=== PATIENT | female | born 1985 | race Caucasian/White ===

== ENCOUNTER 2020-03-17 19:49 | Observation (INO) | payer SELFPAY ==
[~2020-03-17 19:49] MED LIST: Dexamethasone 20 MG/5 ML VIAL ONE; Lidocaine 1% PF 5 ML VIAL ONE; Ondansetron PF 4 MG/2 ML Vial ONE; PROPOFOL 200 MG/20 ML VIAL ONE; Rocuronium Bromide 10 MG/ML (10ML VIAL) ONE; Succinylcholine Chloride 20 MG/ML 10 ml SYRINGE FS ONE
[2020-03-17] MEDS ORDERED: Fentanyl 100 MCG/2 ML VIAL ONE (19:57)
[2020-03-17] MEDS ORDERED: Neomycin-Polymyxin 1 ML AMP ONE ×2 (20:26→20:29)
[2020-03-17] MEDS ORDERED: Dextrose 5% in Water 1,000 ML IV PRN (21:10)
[2020-03-17] MEDS ORDERED: Morphine 2 MG/ML VIAL SLOW IVP PRN (21:10)
[2020-03-17] MEDS ORDERED: Dextrose 50% Abboject 50 ML SYRINGE SLOW IVP PRN (21:10)
[2020-03-17] MEDS ORDERED: TETANUS AND DIPHTHERIA TOX/PF 0.5 ML DISP.SYRIN IM ONE (21:10)
[2020-03-17] MEDS ORDERED: traMADol HCl 50 MG TAB PO PRN (21:19)
--- NOTE | 2020-03-17 21:50 | RAD ---
2 intraoperative images of the left great toe:: 03/17/2020 COMPARISON: 03/17/2020 HISTORY: Status post reduction Findings/impression: Previously noted dislocation of the first metatarsal-phalangeal joint has been r educed.
[2020-03-17] MEDS ORDERED: Meperidine HCl/PF 25 MG/ML VIAL ONE (21:53)
--- NOTE | 2020-03-17 21:55 | HP ---
CONSULTS: Orthopedic Surgery, Dr. Garcia. REQUESTING PHYSICIAN: Dr. Lugo at [facility]. CHIEF COMPLAINT: Syncope, left foot pain. HISTORY OF PRESENT ILLNESS: This is a 35-year-old female, who had a syncopal episode inside the gas station. The patient states that she just blacked out and had no warning. The patient sustained an open left metatarsal dislocation, but unknown how. The patient did have a positive loss of consciousness and has a very superficial deep abrasion to the left eyebrow. The patient denies any recent illnesses including fever, chills, cough. The patient denies any urinary symptoms. The patient reports that this happened sometime around 2. The patient did have 2 margaritas earlier in the day. The patient denies being a daily drinker. The patient denies any new medication. REVIEW OF SYSTEMS: A 10-point review of systems is negative unless otherwise indicated in the above HPI. ALLERGIES: NO KNOWN DRUG ALLERGIES. MEDICATIONS: Adderall 30 mg, but has not taken it in over a month. MEDICAL HISTORY: ADHD. SURGICAL HISTORY: Bladder surgery as a child. SOCIAL HISTORY: Drinks occasionally socially, reports past use of methamphetamines, last used one month ago. Currently smokes cigarettes half pack a day. OBJECTIVE: VITAL SIGNS: Blood pressure 151/98, pulse 96, respirations 15, SpO2 of 98% on room air, temperature 98.3. GENERAL: Middle-age female, awake, alert, and appears anxious. HEENT: Normocephalic, very superficial abrasion, left eyebrow, no active bleeding, mucous membranes moist, midface stable. NECK: No cervical spine tenderness, normal range of motion of neck. No JVD, trachea midline. RESPIRATORY: Equal chest rise and fall, bilateral breath sounds clear, no wheezing, rales, or rhonchi. CARDIOVASCULAR: Regular rate, regular rhythm, no murmurs, no pedal edema. ABDOMEN: Soft, nontender, nondistended. EXTREMITIES: Moves all extremities. Neurovascularly intact x4. Left foot is wrapped in Kerlix wet-to-dry dressing. Unable to visualize the wound. It was reported an obvious open dislocation of the left 1st MTP with exposed distal end of the metatarsal. No other injuries. NEUROLOGIC: No focal deficits. GCS 15. LABORATORY DATA: WBC 7.6, RBC 4.61, hemoglobin 13.1, hematocrit 44.2, platelets 242. Sodium 138, potassium 3.5, chloride 104, carbon dioxide 23, BUN 7, creatinine 0.82, estimated GFR 78, glucose 120, AST 16, ALT 7, alkaline phos 66. Troponin I is less than 0.1. test negative. Urinalysis: No bacteria, negative leukocyte esterase, moderate blood. Negative nitrites. Urine drug screen: Urine opioids detected. DIAGNOSTIC DATA: 12-lead EKG sinus rhythm, heart rate 76, normal T-waves and ST segments. 1. C-spine CT, no acute osseous abnormality. 2. Head CT, no acute intracranial process. 3. Left foot x-ray: Impression: Dislocation of the 1st metatarsal phalangeal joint. Fracture at the base of the 3rd metatarsal and 2nd metatarsal. ASSESSMENT: 1. Status post syncopal fall. 2. Superficial abrasion of left forehead. 3. Concussion. 4. Open dislocation, 1st metatarsal phalangeal joint. Fracture at the base of the 3rd metatarsal. 5. Acute traumatic pain secondary to above injury. PLAN: Supportive care and pain control. Orthopedic Surgery, Dr. Garcia, plans to take the patient to the OR now for repair. IV maintenance fluids. A regular diet postop. The plan was discussed with the attending who agrees. Job ID: [id number]
[2020-03-17] MEDS ORDERED: Potassium Phosphate 30 MMOL in Sodium Chloride 0.9% 500 ML IVPB SCH (22:00)
[2020-03-17] MEDS ORDERED: Promethazine HCl 25 MG/ML VIAL SLOW IVP PRN (22:00)
[2020-03-17] MEDS ORDERED: Meperidine HCl/PF 25 MG/ML VIAL SLOW IVP PRN (22:00)
[2020-03-17] MEDS ORDERED: Ondansetron HCl/PF 4 MG/2 ML Vial IVP PRN (22:00)
[2020-03-17] MEDS ORDERED: Promethazine HCl 25 MG/ML VIAL IM PRN (22:00)
[2020-03-17] MEDS: Ketorolac Tromethamine 30 MG/ML VIAL IVP SCH (23:27)
[2020-03-17] MEDS: traMADol HCl 50 MG TAB PO SCH (23:27)
[2020-03-17] MEDS: Acetaminophen 500 MG TAB PO SCH (23:28)
[2020-03-18 00:05] VITALS: BMI 22.0
[2020-03-18] MEDS: Sodium Chloride 0.9% 1,000 ML IV SCH ×3 (00:39→16:57)
[2020-03-18] MEDS: traMADol HCl 50 MG TAB PO SCH ×4 (05:13→23:08)
[2020-03-18] MEDS: Acetaminophen 500 MG TAB PO SCH ×4 (05:14→23:08)
[2020-03-18] MEDS: Ketorolac Tromethamine 30 MG/ML VIAL IVP SCH (05:15)
[2020-03-18] MEDS: CEFAZOLIN 2 GM in Premix Bag 1 BAG IVPB SCH ×3 (05:16→23:07)
[2020-03-18 05:35] LABS: Hemoglobin 13.4 g/dL (12.0-16.0); Mean Corpuscular HGB CONC 32.1 g/dL (32.0-36.0); Mean Corpuscular Hemoglobin 30.9 pg (27.0-31.0); Mean Corpuscular Volume 96.3 fL (78.0-98.0); Mean Platelet Volume 9.9 fL (7.4-10.4); Platelet Count 254 thou/uL (130-400); RBC Distribution Width 10.9 % (11.5-14.5); Red Blood Cell (RBC) Count 4.34 mill/uL (4.20-5.40); White Blood Cell (WBC) Count 10.2 thou/uL (4.8-10.8)
[2020-03-18 05:46] LABS: Anion Gap 13 mmol/L (10-20); BUN (Urea Nitrogen) 7 mg/dL (7.0-18.7); Calc. Creatinine Clearance 103 mL/min (70-130); Calcium 8.1 mg/dL (7.8-10.44); Carbon Dioxide 22 mmol/L (22-29); Chloride 108 mmol/L (98-107); Estimated GFR-MDRD 83; Glucose 134 mg/dL (70-105); Magnesium 1.7 mg/dL (1.6-2.6); Phosphorus 4.2 mg/dL (2.3-4.7); Potassium 4.6 mmol/L (3.5-5.1); Sodium 138 mmol/L (136-145)
[2020-03-18] MEDS: Polyethylene Glycol 3350 17 GM Packet PO SCH (08:14)
[2020-03-18] MEDS: Ibuprofen 800 MG TAB PO SCH ×2 (10:04→16:56)
[2020-03-18] MEDS ORDERED: Magnesium 2 GM/50 ML 2 GM in Premix Bag 1 BAG IVPB SCH (14:30)
--- NOTE | 2020-03-18 18:27 | PRG ---
DATE OF SERVICE: 03/18/2020 SUBJECTIVE: The patient was seen this afternoon after rounds. She was lying in bed with no signs of acute distress. She reports she is tolerating her diet. Pain is well controlled. She is getting around safely with crutches, going to the bathroom independently. She is pending echo read for syncopal episode, not otherwise diagnosed on previous workup. OBJECTIVE: VITAL SIGNS: Temperature 98.7, pulse 70, respirations 16, oxygen saturation 92% on room air, blood pressure 109/72. GENERAL: Well-appearing young female lying in bed with no signs of acute distress. PULMONARY: Equal chest rise and fall. Clear breath sounds bilaterally. No signs of acute respiratory distress. CARDIAC: Regular rate and rhythm. GI: Abdomen is soft, nontender, nondistended. EXTREMITIES: 2+ pulses in all extremities. Gross motor and sensation are intact left lower extremity that is intact and working appropriately. NEUROLOGIC: GCS is 15. LABORATORY FINDINGS: White count 10.2, hemoglobin 13.4, hematocrit 41.8, platelets 254. Sodium 138, potassium 4.6, chloride 108, bicarb 22, BUN 7, creatinine 0.78, glucose 134, phosphorus 7.2, magnesium 1.7. DIAGNOSTIC FINDINGS: There are no new diagnostic findings to report. ASSESSMENT: 1. Status post syncopal fall. 2. Left 1st MTP dislocation with fracture of the 2nd and 3rd metatarsals. 3. Concussion. 4. Syncope. 5. Right thyroid nodule. PLAN: Continue current regular diet. Continue physical and occupational therapy. Continue current pain regimen. Discontinue IV fluids. Echo has been completed. We are pending read. If the read is unconcerning, we will discharge the patient home. We will replace the patient's magnesium today. Job ID: [id number]
[2020-03-19] MEDS: Ibuprofen 800 MG TAB PO SCH ×3 (02:44→17:26)
[2020-03-19] MEDS: CEFAZOLIN 2 GM in Premix Bag 1 BAG IVPB SCH ×2 (05:16→16:32)
[2020-03-19] MEDS: traMADol HCl 50 MG TAB PO SCH ×3 (05:17→17:27)
[2020-03-19] MEDS: Acetaminophen 500 MG TAB PO SCH ×3 (05:17→17:26)
[2020-03-19] MEDS: Polyethylene Glycol 3350 17 GM Packet PO SCH (09:46)
--- NOTE | 2020-03-19 10:02 | OP ---
DATE OF PROCEDURE: 03/17/2020 PREOPERATIVE DIAGNOSES: 1. Open dislocation of left 1st metatarsophalangeal joint. 2. Closed fracture of base of 3rd metatarsal. POSTOPERATIVE DIAGNOSES: 1. Open dislocation of left 1st metatarsophalangeal joint. 2. Closed fracture of base of 3rd metatarsal. SURGICAL PROCEDURES: 1. Open reduction and suture stabilization of left 1st metatarsophalangeal joint dislocation. 2. Irrigation and debridement of open left 1st metatarsophalangeal joint dislocation. 3. Closed treatment of left 3rd metatarsal base fracture. ANESTHESIA: General. VICE PRESIDENT INTEGRATED: None. TOURNIQUET: None. ESTIMATED BLOOD LOSS: Less than 5 mL. IMPLANTS: None. DRAINS: None. SPECIMEN: None. OUTCOME: Satisfactory. INDICATIONS FOR PROCEDURE: The patient is a 35-year-old lady status post trip sustaining an open dislocation of the left 1st metatarsophalangeal joint and a fracture at the base of the 3rd. The patient was initially seen at the [facility] where x-rays confirmed these findings. The patient was given antibiotics at the emergency room, placed in a sterile dressing, and then transferred to [facility] for orthopedic evaluation. Upon evaluation, the patient was found to have a lateral dislocation of the left 1st metatarsophalangeal joint as well as a nondisplaced fracture at the base of the 3rd. Her foot compartments were soft. She pain with passive stretch. It should be noted that in this medial wound, the metatarsal head could be clearly visualized. There were no foreign debris. The patient now taken urgently to the operating room for irrigation, debridement, and stabilization of this toe. DESCRIPTION OF PROCEDURE: The patient was brought to the operating room and a time-out performed followed by induction of general anesthesia. She was positioned supine on the OR table and then a sterile prep and drape was performed on the left lower extremity. Next, the wound was inspected. There was found to be perhaps just some very minor debris consistent with very small bits of gravel. These were removed from the wound with forceps. Bulb syringe was then used to irrigate 2 L of normal saline through the wound. No further foreign material was encountered. Next, the dislocation was reduced without difficulty. There was found to have relative stability with just the simple reduction maneuver. As such, it was felt that with closure of the capsule, this would be adequate stabilization of this fracture. As such, the edges of the capsule were identified, and using 0 Vicryl, the capsule was closed, providing quite good stability of the metatarsophalangeal joint. This was then followed by 2-0 Vicryl subcutaneously and then 3-0 nylon for the skin. At the completion of the suture stabilization of the joint, a Xeroform, gauze, and Kashif wrap dressing was applied to the foot and then the foot was placed in a postoperative shoe providing stability to the third metatarsal base as well as the 1st metatarsophalangeal joint dislocation. The patient was then transferred to recovery room in stable condition. There were no complications. She tolerated the procedure well. Job ID: [id number]
--- NOTE | 2020-03-19 16:01 | PRG ---
DATE OF SERVICE: 03/19/2020 SUBJECTIVE: Ms. Ceron is postop day #1, status post ORIF of the left first metatarsophalangeal dislocation with fracture and fracture of the second and third metatarsals. She is feeling better. No further syncope. No tachycardia. Echocardiogram was reviewed. She does have a PFO. Cardiology is consulted. Discussed with Cardiology, and they are planning for a transesophageal echocardiogram with a bubble study to evaluate with a degree of shunt. The patient's pain is controlled, she is getting about. She is tolerating a diet. OBJECTIVE: VITAL SIGNS: Today, temperature is 98.2, blood pressure is 108/70, heart rate is 65, breathing 17 times per minute, 96% on room air. GENERAL: A 35-year-old female sitting up in no acute distress. HEENT: Normocephalic and atraumatic. Trachea is midline. RESPIRATORY: Equal rise and fall. Bilateral breath sounds. Clear to auscultation upper and lower lobes bilaterally. CARDIOVASCULAR: Trace murmur appreciated. Regular rhythm and regular rate. No edema. ABDOMEN: Soft, nontender. Pelvis is stable. MUSCULOSKELETAL: She has dressing applied to the left foot and digit. No acute pain. NEUROLOGIC: Alert and oriented to person, place, time, and event. GCS is 15. PSYCHIATRIC: Normal mood and affect. LABORATORY DATA: There is no laboratory data to review today. ASSESSMENT AND PLAN: 1. Syncope and fall. 2. Left first metatarsophalangeal dislocation with fracture of the second and third metatarsals, status post open reduction and internal fixation. 3. Concussion. 4. Right thyroid nodule. PLAN: 1. We will continue PT, OT. 2. Continue pain control. 3. Dr. Coburn with Cardiology is consulted and appreciate recommendations. 4. Plan for transesophageal echocardiogram and bubble study likely discharge after this. 5. The patient understands the plan. Discussed with Nursing and Cardiology. Job ID: [id number]
[2020-03-19] MEDS: Cephalexin 250 MG CAP PO SCH (21:11)
--- NOTE | 2020-03-19 23:12 | CON ---
DATE OF CONSULTATION: HISTORY OF PRESENT ILLNESS: Mayte Ceron is a 35-year-old white female with a longstanding history of vasovagal syncope. She especially has syncopal episodes when she sees needles or has her blood drawn. She then had a syncopal episode, but without any particular inciting event while walking to the bathroom. She suffered a fracture of the left foot, underwent ORIF of this. Echocardiogram revealed ejection fraction of 60% to 65% with a small foramen ovale with [id number] shunt, mild mitral regurgitation, and mild tricuspid regurgitation. She denies any history of transient ischemic attacks or strokes in the past. She has no paresthesias or extremity weakness. PAST MEDICAL HISTORY: ADHD and episodes of vasovagal syncope as noted above. OPERATIONS: Bladder surgery as a child and left foot ORIF. MEDICATIONS: Adderall 30 mg, but has not taken this for a month. ALLERGIES: NONE. SOCIAL HISTORY: She smokes 1/2 pack per day. History of methamphetamine abuse, although the last time was one month ago. REVIEW OF SYSTEMS: Unremarkable except as noted above. PHYSICAL EXAMINATION: VITAL SIGNS: Blood pressure 127/80 and pulse 64. HEENT: PERRL. NECK: Supple. CHEST: Clear. CARDIAC: S1 and S2 normal without any S3 or S4. There is a 1/6 systolic murmur along the left upper sternal border. ABDOMEN: Normal bowel sounds without tenderness or organomegaly. EXTREMITIES: Revealed no clubbing, cyanosis, or edema. NEUROLOGIC: Grossly intact. SKIN: Warm and dry. LABORATORY DATA: I do not see an EKG on the chart. CBC is unremarkable. Sodium 138, potassium 4.6, chloride 108, carbon dioxide 22, BUN 7, creatinine 0.78. Urine drug screen was positive for opiates. IMPRESSION: 1. Small patent foramen ovale seen on echo. 2. Probable vasovagal syncope with multiple episodes in the past, although there was not any particular inciting event. 3. Attention deficit hyperactivity disorder. 4. Smoker. PLAN: EKG will be obtained. It is recommended she undergo transesophageal echo and possible bubble study with this. This is after an elective procedure; however, I am quite concerned that if she is discharged that she may not have the funds to come in for an elective evaluation. Therefore, we recommend that she stays until transesophageal echo is performed. Job ID: [id number] [facility]
[2020-03-20] MEDS: traMADol HCl 50 MG TAB PO SCH ×4 (00:27→19:06)
[2020-03-20] MEDS: Ibuprofen 800 MG TAB PO SCH ×3 (00:27→19:06)
[2020-03-20] MEDS: Acetaminophen 500 MG TAB PO SCH ×4 (00:27→19:05)
[2020-03-20] MEDS: Polyethylene Glycol 3350 17 GM Packet PO SCH (08:48)
[2020-03-20] MEDS: Cephalexin 250 MG CAP PO SCH ×3 (08:48→20:17)
--- NOTE | 2020-03-20 15:34 | PRG ---
DATE OF SERVICE: 03/20/2020 SUBJECTIVE: The patient was seen on morning rounds today. She was seen yesterday by Cardiology, recommending a SOCORRO with bubble study that will be completed tomorrow. Therefore, she will be inpatient until then. She had no changes overnight, feels well, hemodynamically stable. OBJECTIVE: VITAL SIGNS: Temperature is 98.3, blood pressure 121/78, heart rate is 62, breathing 18 times per minute, and 96% on room air. GENERAL: A 35-year-old female, sitting up, in no acute distress. HEENT: Normocephalic. Trachea is midline. RESPIRATORY: Equal rise and fall. No respiratory distress. CARDIOVASCULAR: Regular rate. MUSCULOSKELETAL: Moves all of her extremities well. NEUROLOGIC: Alert and oriented to person, place, time, and event. PSYCH: Normal mood and affect. SKIN: Warm and dry. LABORATORY DATA: There are no laboratory data to review. No diagnostics to review. ASSESSMENT AND PLAN: 1. Syncope. 2. Patent foramen ovale. 3. Left 1st metatarsophalangeal dislocation with fracture, and 2nd and 3rd metatarsal fracture, status post open reduction and internal fixation. 4. Concussion. 5. Right thyroid nodule. PLAN: 1. Continue PT, OT. 2. Wait for SOCORRO tomorrow. Appreciate Dr. Coburn's consult. 3. Continue pain control and all other supportive measures. Updated the patient. No family at the bedside. Verbalized understanding. Discussed with the bedside RN. Job ID: [id number]
[2020-03-21] MEDS: traMADol HCl 50 MG TAB PO SCH ×3 (00:28→12:55)
[2020-03-21] MEDS: Acetaminophen 500 MG TAB PO SCH ×3 (00:28→12:54)
[2020-03-21] MEDS: Ibuprofen 800 MG TAB PO SCH ×2 (01:43→08:43)
[2020-03-21 08:02] VITALS: BP 113/74; TEMP 98.3
[2020-03-21] MEDS: Polyethylene Glycol 3350 17 GM Packet PO SCH (08:43)
[2020-03-21] MEDS: Cephalexin 250 MG CAP PO SCH (08:43)
[2020-03-21] MEDS ORDERED: PROPOFOL 20 ML ONE ×2 (11:08→11:26)
[2020-03-21] MEDS ORDERED: PROPOFOL 200 MG/20 ML VIAL ONE (12:01)
--- NOTE | 2020-03-21 15:47 | EKG ---
Test Reason : Blood Pressure : / mmHG Vent. Rate : 055 BPM Atrial Rate : 055 BPM P-R Int : 124 ms QRS Dur : 076 ms QT Int : 430 ms P-R-T Axes : 014 076 053 degrees QTc Int : 411 ms Sinus bradycardia Otherwise normal ECG When compared with ECG of 17-MAR-2020 20:06, No significant change was found Confirmed by CHANEL CARDONA M.D. ([id number]) on 03/21/2020 3:46:54 PM Referred By: MARIA TERESA Confirmed By:CHANEL CARDONA M.D.
--- NOTE | 2020-03-22 02:23 | DIS ---
DATE OF ADMISSION: 03/17/2020 DATE OF DISCHARGE: 03/21/2020 ADMITTING DIAGNOSES: 1. Syncope and forehead abrasion. 2. Concussion. 3. Open dislocation, first metatarsophalangeal joint and fracture of the base of the third metatarsal. 4. Acute traumatic pain. DISCHARGING DIAGNOSES: 1. Syncope and fall. 2. Open dislocation, first metatarsopharyngeal joint and fracture of the base of the third metatarsal. 3. Acute traumatic pain. 4. Concern for patent foramen ovale, not demonstrated on transesophageal echocardiogram. DISCHARGING PHYSICIAN: Dr. Tommie Rabago. CONSULTING PHYSICIANS: Dr. Michael Garcia with Orthopedic Surgery. Dr. Mayur Coburn with Cardiovascular. PROCEDURES: 1. Open reduction and internal fixation of the metatarsal fracture and base of the third metatarsal. 2. Transesophageal echocardiogram on 03/21/2020. HOSPITAL COURSE: Ms. Ceron was admitted through the emergency department to the surgery gandhi. She was taken to the operative theater for definitive repair of her open dislocation and foot fracture. Tolerated the procedure well. Pain was controlled on oral medicines. The patient had no adverse events. Because of her syncope, she had a cardiac echocardiogram demonstrating possible PFO with a [id number] shift; therefore, Cardiology was consulted and recommended a SOCORRO. She remained stable over the weekend. No changes in hemodynamics. Tolerating diet. Normal p.o. intake. No further syncope. SOCORRO on the date of discharge demonstrated no significant PFO or shift. Therefore, the patient can follow up with her PCP. The patient has a PCP in [place] and it was discussed with her to follow up with the same. Cardiology has seen the patient on the day of discharge and approved the same. No need to follow up unless needed. DISCHARGE MEDICATIONS: 1. Home dose of Adderall 30 mg. 2. Ibuprofen 400 mg t.i.d. 3. Tramadol 50 mg every 4 to 6 hours as needed. FOLLOWUP: 1. Follow up with Dr. Garcia in two weeks. 2. Follow up with primary care within one week. PHYSICAL EXAMINATION: On the date of discharge, VITAL SIGNS: Temperature is 98.3, blood pressure 113/74, heart rate is 62, breathing 14 times per minute, and saturating 97% on room air. GENERAL: This is a 35-year-old female, sitting up in no acute distress. HEENT: Normocephalic, atraumatic. Trachea is midline. RESPIRATORY: Equal rise and fall. No respiratory distress. CARDIOVASCULAR: Regular rate and rhythm. ABDOMEN: No abdominal pain. MUSCULOSKELETAL: Moves extremities well. She has a boot to the left lower with dressing intact. She is ambulatory. PSYCH: Normal mood and affect. NEUROLOGIC: Alert and oriented to person, place, time, and event. There is no diagnostic criteria to review. I answered all questions of the patient at the bedside coordinating care with the Orthopedic team and Cardiovascular team in surgery gandhi. Greater than 40 minutes was taken in discharge planning of this patient. Job ID: [id number]
--- NOTE | 2020-03-22 08:23 | OP ---
DATE OF PROCEDURE: 03/21/2020 PROCEDURE PERFORMED: Transesophageal echocardiogram. INDICATION: A 35-year-old woman with a possible TIA. The patient was taken to the PACU. The patient was sedated by Anesthesiology. A transesophageal probe was placed into the distal esophagus and stomach. Echocardiographic images were obtained. The transesophageal echo images were obtained. Multiple contrast bubble exams were performed. The transesophageal probe was removed. FINDINGS: 1. Normal left ventricular systolic function. 2. Normal left atrial size. 3. Normal mitral and aortic valves. 4. Mild tricuspid regurgitation. 5. No PFO was noted by contrast bubble or color Doppler exam. IMPRESSION: No PFO was noted. Job ID: [id number]
== END 2020-03-21 16:03 | disposition home or self-care (01) ==
LOC: ERS 19:49 → SDC/OP 20:52 → SJJU 21:10
PROVIDERS: ADMIT Specialist; ATTEND Specialist
PROC: 0SSN0ZZ Reposition Left Metatarsal-Phalangeal Joint, Open Approach (ICD-10-PCS; principal; 2020-03-17)
PROC: 0QSPXZZ Reposition Left Metatarsal, External Approach (ICD-10-PCS; 2020-03-17)
PROC: B24BZZ4 Ultrasonography of Heart with Aorta, Transesophageal (ICD-10-PCS; 2020-03-21)
DX: S93.122A Dislocation of metatarsophalangeal joint of left great toe, initial encounter (principal); S91.102A Unspecified open wound of left great toe without damage to nail, initial encounter; S92.335A Nondisplaced fracture of third metatarsal bone, left foot, initial encounter for closed fracture; I07.1 Rheumatic tricuspid insufficiency; R55 Syncope and collapse; S00.212A Abrasion of left eyelid and periocular area, initial encounter; S06.0X9A Concussion with loss of consciousness of unspecified duration, initial encounter; G89.11 Acute pain due to trauma; F90.9 Attention-deficit hyperactivity disorder, unspecified type; F17.210 Nicotine dependence, cigarettes, uncomplicated; F12.10 Cannabis abuse, uncomplicated; F15.11 Other stimulant abuse, in remission; E04.1 Nontoxic single thyroid nodule; Z79.899 Other long term (current) drug therapy; W18.30XA Fall on same level, unspecified, initial encounter; Y92.524 Gas station as the place of occurrence of the external cause
CPT/HCPCS: 36415; 76000; 80048; 83735; 84100; 85027; 93005; 93010; 93306; 93312; 96365; 96374; 96375; 96376; G0378; G0390; J0690; J1100; J1885; J2175; J2405; J2704; J3010; J3475; J7030